=== PATIENT | female | born 1960 | race Caucasian/White ===

== ENCOUNTER 2016-07-28 19:21 | Emergency (ER) | payer OTHER ==
[~2016-07-28] VITALS: Ht 160 cm; Wt 88.5 kg
[2016-07-28 20:27] VITALS: Ht 160 cm; Wt 88.5 kg
[2016-07-28] MEDS ORDERED: morphine 4 MG/ML VIAL IV STA (21:07)
[2016-07-28] MEDS ORDERED: SOD CHLORIDE 0.9% 1,000 ML IV STA (21:07)
[2016-07-28] MEDS ORDERED: ONDANSETRON 4 MG INJ IV STA (21:07)
[2016-07-28] MEDS ORDERED: SOD CHLORIDE 0.9% 100 ML ONE (21:35)
[2016-07-28] MEDS ORDERED: IOHEXOL 300MG/ML 150 ML BTL ONE (21:35)
[2016-07-28 21:38] LABS: ADD SCAN DIFF NO
[2016-07-28 21:41] LABS: BASOPHIL # 0.1 10^3/ul (0.0-0.1); BASOPHILS % 0.6 % (0.0-2.0); HEMATOCRIT 40.5 % (37.0-47.0); HEMOGLOBIN 13.7 g/dl (12.0-16.0); LYMPHOCYTES # 1.9 10^3/ul (0.8-2.9); LYMPHOCYTES % 18.7 % (15.0-51.0); MEAN CORPUSCULAR HEMOGLOBIN 31.7 pg (29.0-33.0); MEAN CORPUSCULAR HGB CONC 33.8 g/dl (32.0-37.0); MEAN CORPUSCULAR VOLUME 93.8 fl (82.0-101.0); MEAN PLATELET VOLUME 10.2 fl (7.4-10.4); MONOCYTE # 0.7 10^3/ul (0.3-0.9); MONOCYTES % 6.9 % (0.0-11.0); NEUTROPHIL # 7.3 10^3/ul (1.6-7.5); NEUTROPHILS % 73.3 % (39.0-77.0); PLATELET COUNT 261 10^3/UL (140-415); RED BLOOD COUNT 4.32 10^6/ul (4.20-5.40); RED CELL DISTRIBUTION WIDTH 13.1 % (11.5-14.5)
[2016-07-28 21:50] LABS: INR 1.11; PROTIME 14.3 Sec (12.2-14.2); PT RATIO 1.1
[2016-07-28 21:51] LABS: ALBUMIN 4.6 g/dl (3.3-4.9); CHLORIDE 98 mmol/L (97-110); PARTIAL THROMBOPLASTIN TIME 32.4 Sec (25.0-35.0)
[2016-07-28 21:52] LABS: POTASSIUM 3.7 mmol/L (3.5-5.1); SODIUM 135 mmol/L (135-144)
[2016-07-28 21:54] LABS: AMYLASE 102 U/L (11-123); ANION GAP 17 (8-16); BILIRUBIN,INDIRECT 0.6 mg/dl (0-1.1); BILIRUBIN,TOTAL 0.6 mg/dl (0.2-1.3); CARBON DIOXIDE 24 mmol/L (21-31)
[2016-07-28 21:55] LABS: ALANINE AMINOTRANSFERASE 66 IU/L (13-69); ALBUMIN/GLOBULIN RATIO 1.24; ALKALINE PHOSPHATASE 90 IU/L (42-121); ASPARTATE AMINO TRANSFERASE 27 IU/L (15-46); BLOOD UREA NITROGEN 14 mg/dl (7-20); CALCIUM 9.2 mg/dl (8.4-10.2); GLUCOSE 113 mg/dl (70-220); TOTAL PROTEIN 8.3 g/dl (6.1-8.1)
[2016-07-28 22:18] LABS: ADD UMIC YES; URINE BILIRUBIN (Dip) NEGATIVE (NEGATIVE); URINE BLOOD (Dip) 1+ (NEGATIVE); URINE COLOR LT. YELLOW (YELLOW); URINE GLUCOSE (Dip) NEGATIVE (NEGATIVE); URINE KETONES (Dip) NEGATIVE (NEGATIVE); URINE LEUKOCYTE ESTERASE (Dip) NEGATIVE (NEGATIVE); URINE NITRITE (Dip) NEGATIVE (NEGATIVE); URINE TOTAL PROTEIN (Dip) NEGATIVE (NEGATIVE); URINE UROBILINOGEN (Dip) 0.2 E.U./dL (0.1-1.0)
[2016-07-28 22:31] LABS: TROPONIN-I < 0.012 ng/ml (0.00-0.12)
[2016-07-28 22:35] LABS: MUCUS,URINE FEW; SQUAMOUS EPITHELIAL CELL,UR OCCASIONAL; URINE RBCS 0-2 /HPF (0)
[2016-07-28] MEDS ORDERED: IBUP800T25 PO (23:23)
[2016-07-28] MEDS ORDERED: HYDR-906 PO (23:23)
[2016-07-28] MEDS ORDERED: IBUPROFEN 800 MG TAB PO ONE (23:30)
[2016-07-28] MEDS ORDERED: ACETAMINOPHEN 500 MG TAB PO STA (23:30)
--- NOTE | 2016-07-28 23:30 | ERD ---
ER Documentation Chief Complaint Date/Time DATE: 07/28/16 TIME: 23:25 Chief Complaint LEFT FLANK PAIN X 2 DAYS +FEVER DENIES N/V DIARRHEA. HPI This is a very pleasant 55-year-old female that presents to the emergency department complaining of left flank pain that has been intermittent for the past 2 years. Contrary to the triage note the patient indicates that the pain has been intermittent for the past 2 years but progressively worsened over the past 48 hours. She does indicate she has had a tactile fever with shaking chills. Patient does indicate she has been experiencing mild dysuria but denies any frequency urgency and she has no nausea vomiting or diarrhea. She denies any recent remote trauma to the abdomen or flank region. She has no gross hematuria. She denies any abnormal urethral discharge. She has taken Tylenol but this does not improve her pain. She denies any shortness of breath at rest or exertion. She denies any weight loss. She denies a productive or nonproductive cough. Patient denies any saddle anesthesia. She states that the left flank pain does not radiate to her lower abdomen or legs. She denies any changes in her bladder or bowel frequency. ROS All systems reviewed and are negative except as per history of present illness. Medications Home Meds Active Scripts Hydrocodone/Acetaminophen ([place] 5-325 Tablet) 1 Each Tablet, 1 EACH PO Q6, #20 TAB Prov:CESAR BARCENAS 07/28/16 Ibuprofen* (Motrin*) 800 Mg Tab, 800 MG PO Q6H Y for PAIN AND OR ELEVATED TEMP, #30 TAB Prov:CESAR BARCENAS 07/28/16 Allergies Allergies: Uncoded Allergies: PENICILLIN (Allergy, Severe, RASH, 07/28/16) Physical Exam Vitals Vital Signs Date Time Temp Pulse Resp B/P Pulse Ox O2 Delivery O2 Flow Rate FiO2 07/28/16 20:27 102.2 99 20 129/68 99 Physical Exam Constitutional:Well-developed. Well-nourished. HEENT:Normocephalic. Atraumatic.Pupils were equal round reactive to light. Moist mucous membranes.No tonsillar exudates. Neck: No nuchal rigidity. No lymphadenopathy. No posterior cervical spine tenderness or step-offs. Respiratory: Not using accessory muscles of respiration.Lungs were clear to auscultation bilaterally. No rhonchi. No rales. No wheezing. Cardiovascular: Regular rate regular rhythm.No murmurs. No rubs were appreciated.S1, S2 normal. Distal pulses are palpable 2+ bilaterally. GI: Abdomen was soft. Left CVA tenderness. Non Distended. No pulsatile abdominal masses or bruits. No rebound. No guarding. Bowel sounds were present and normal. Muscle skeletal: Full range of motion of both the upper and lower extremities bilaterally.Normal muscle tone.No assymetrical calf tenderness or swelling. Straight leg test negative on the left and the right Skin: No petechia, no purpura. No lesions on the palms or the soles of the feet. No maculopapular rash. NEURO: Patient was alert, awake, orientated x3.No facial droop. Gait observed and normal with no ataxia.Speech had regular rate and rhythm. No focal neurological deficits. Result Diagram: 07/28/16212207/28/162122 Results 24 hrs Laboratory Tests Test 07/28/16 21:23 07/28/16 21:32 White Blood Count 10.010^3/ul Red Blood Count 4.3210^6/ul Hemoglobin 13.7g/dl Hematocrit 40.5% Mean Corpuscular Volume 93.8fl Mean Corpuscular Hemoglobin 31.7pg Mean Corpuscular Hemoglobin Concent 33.8g/dl Red Cell Distribution Width 13.1% Platelet Count 88011^3/UL Mean Platelet Volume 10.2fl Neutrophils % 73.3% Lymphocytes % 18.7% Monocytes % 6.9% Eosinophils % 0.0% Basophils % 0.6% Nucleated Red Blood Cells % 0.0/100WBC Neutrophils # 7.310^3/ul Lymphocytes # 1.910^3/ul Monocytes # 0.710^3/ul Eosinophils # 0.010^3/ul Basophils # 0.110^3/ul Nucleated Red Blood Cells # 0.010^3/ul Prothrombin Time 14.3Sec Prothrombin Time Ratio 1.1 INR International Normalized Ratio 1.11 Activated Partial Thromboplast Time 32.4Sec Sodium Level 135mmol/L Potassium Level 3.7mmol/L Chloride Level 98mmol/L Carbon Dioxide Level 24mmol/L Anion Gap 17 Blood Urea Nitrogen 14mg/dl Creatinine 0.80mg/dl Glucose Level 113mg/dl Calcium Level 9.2mg/dl Total Bilirubin 0.6mg/dl Direct Bilirubin 0.00mg/dl Indirect Bilirubin 0.6mg/dl Aspartate Amino Transf (AST/SGOT) 27IU/L Alanine Aminotransferase (ALT/SGPT) 66IU/L Alkaline Phosphatase 90IU/L Troponin I < 0.012ng/ml Total Protein 8.3g/dl Albumin 4.6g/dl Globulin 3.70g/dl Albumin/Globulin Ratio 1.24 Amylase Level 102U/L Lipase 98U/L Urine Color LT. YELLOW Urine Clarity CLEAR Urine pH 5.5 Urine Specific [place] 1.015 Urine Ketones NEGATIVE Urine Nitrite NEGATIVE Urine Bilirubin NEGATIVE Urine Urobilinogen 0.2 E.U./dL Urine Leukocyte Esterase NEGATIVE Urine Microscopic RBC 0-2/HPF Urine Microscopic WBC 0-2/HPF Urine Squamous Epithelial Cells OCCASIONAL Urine Mucus FEW Urine Hemoglobin 1+ Urine Glucose NEGATIVE% Urine Total Protein NEGATIVE Current Medications Medications (Trade) Dose Ordered Sig/Marcellus Route PRN Reason Start Time Stop Time Status Last Admin Dose Admin Sodium Chloride (NS) 1,000 ml @ 1,000 mls/hr Q1H STAT IV 07/28/16 21:07 07/28/16 22:06 DC 07/28/16 21:28 Morphine Sulfate (morphine) 4 mg ONCE STAT IV 07/28/16 21:07 07/28/16 21:08 DC 07/28/16 21:28 Ondansetron HCl (Zofran Inj) 4 mg ONCE STAT IV 07/28/16 21:07 07/28/16 21:08 DC 07/28/16 21:28 Procedures/MDM The patient presented to the emergency department with left flank pain. My differential diagnosis included but was not limited to spinal origins of the pain such as fracture, osteomyelitis, epidural abscess, neoplasm, spondylolishtesis, discogenic, cauda equina syndrome or musculoligamentous. Nonspinal causes such as AAA, upper UTI, renal colic, aortic dissection, abdominal neoplasm were also considered as an etiology into their pain. The patient had no leukocytosis. There is no electrolyte abnormalities. There is no evidence of urinary tract infection. The patient did receive intravenous morphine Toradol and Zofran for analgesic control. 12 Lead EKG tracing ordered and reviewed by myself showed: Normal sinus rhythm of 86 bpm and no arrhythmia. [place] interval normal. QRS duration normal. No ST segment elevation No ST segment depression. No changes consistent with acute ischemia. The patient was febrile in the emergency department with a fever of 102. She received antipyretics which included acetaminophen and Motrin. Again the patient had no leukocytosis and no evidence of cystitis on the urinalysis. I did indicate to the patient that this could be a viral etiology and the patient had no physical exam findings to suggest sepsis I obtained a CT scan of the abdomen which showed no evidence of obstructive uropathy, diverticulitis or perforated viscus. I did indicate that the patient would benefit from an outpatient colonoscopy and further evaluation as he did not have an exact etiology into the patient's flank pain at this time did not appear to have an acute emergent condition; however I cannot rule out a neoplasm. The patient was discharged home in fair condition. They were instructed to return to the emergency department at any time if there was any worsening of their condition. The patient stated they would follow up with their PCP in the next 24-48 hours to initiate a suitable medication regimen under the care of their PCP as well as to allow their PCP to monitor any drug reactions. The patient was discharged home with prescriptions after they gave informed consent to the new medication. They were also fully informed by myself on the adverse effects and adverse drug interactions in order to provide adequate safeguards to prevent possible adverse reactions to medications. Departure Diagnosis: Primary Impression: Flank pain Condition: Fair Patient Instructions: Flank Pain, Uncertain Cause Referrals: [facility] NITHYA Roberts (PCP) CESAR BACRENAS Jul 28, 2016 23:30
[2016-07-29] VITALS: BP 98/72; PULSE 64; RESP 17; TEMP 98.7
--- NOTE | 2016-07-29 00:06 | RADRPT ---
PROCEDURE: CT abdomen and pelvis with intravenous contrast. CLINICAL INDICATION: Pain. TECHNIQUE: CT of the abdomen/pelvis was performed utilizing axial images with reconstructions in s agittal and coronal planes after uneventful administration of 100 cc Omnipaque 300. The administered radiation dose is CTDI 21 mGy, DLP 1179 mGy-cm. COMPARISON: No pertinent prior examinations were submitted for comparison. FINDINGS: Visualized Chest: Some coronary artery calcifications are noted. Abdomen: The spleen, pancreas, gallbladder,and adrenal glands are unremarkable. The liver is diffusely dec reased in attenuation, compatible with hepatic steatosis. The kidneys are without hydronephrosis. No definite urinary calculi are seen. Some areas of scarrin g are noted within the right renal cortex. There is no evidence of bowel obstruction. The appendix is normal. No intra-abdominal free air is seen. There is no evidence of intra-abdominal adenopathy or free fluid. Pelvis: There is no evidence of pelvic adenopathy. The uterus and ovaries are without enlargement. The uri nary bladder is unremarkable. There is trace pelvic free fluid. Osseous structures: Unremarkable. IMPRESSION: No acute findings. Hepatic steatosis. RPTAT: HIKT .Saurabh Lemos MD, MD Date Time Electronically viewed and signed by .Saurabh Lemos MD, on 07/29/2016 00:06 .T/
== END 2016-07-29 00:59 | disposition home or self-care (01) ==
LOC: E/R 19:21
DX: R10.9 Unspecified abdominal pain (principal)
CPT/HCPCS: 74177; 80053; 81001; 82150; 83690; 84484; 85025; 85610; 85730; 87086; 93005; J2270; J2405; J7030; Q9967; Z7610; 81003; 96374; 96375

== ENCOUNTER 2017-01-21 07:08 | Emergency (ER) | payer OTHER ==
[~2017-01-21] VITALS: Wt 89.0 kg
[~2017-01-21 07:08] MED LIST: HYDR-906 PO; IBUP800T25 PO
[2017-01-21 07:21] VITALS: Wt 89.0 kg
[2017-01-21] MEDS ORDERED: TRAM50TA2 PO (07:59)
--- NOTE | 2017-01-21 09:17 | ERD ---
ER Documentation Chief Complaint Date/Time DATE: 01/21/17 TIME: 09:13 Chief Complaint reta knee pain, no trauma HPI This is a 56-year-old female presenting to the emergency department complaining of bilateral knee pain for the past year. Patient states that there is no trauma, she rates the pain moderate in severity increased with movement. Patient states that the pain has increased since yesterday. She denies any fevers. She take Tylenol for pain ROS All systems reviewed and are negative except as per history of present illness. Medications Home Meds Active Scripts Tramadol HCl (Tramadol HCl) 50 Mg Tablet, 50 MG PO Q6 Y for PAIN, #20 TAB Prov:SAVANNA JONES PA-C 01/21/17 Hydrocodone/Acetaminophen ([place] 5-325 Tablet) 1 Each Tablet, 1 EACH PO Q6, #20 TAB Prov:CESAR BARCENAS 07/28/16 Ibuprofen* (Motrin*) 800 Mg Tab, 800 MG PO Q6H Y for PAIN AND OR ELEVATED TEMP, #30 TAB Prov:CESAR BARCENAS 07/28/16 Allergies Allergies: Uncoded Allergies: PENICILLIN (Allergy, Severe, RASH, 07/28/16) PMhx/Soc History of Surgery: Yes (TUMMY TUCK) Anesthesia Reaction: No Hx Neurological Disorder: No Hx Respiratory Disorders: No Hx Cardiac Disorders: No Hx Psychiatric Problems: No Hx Miscellaneous Medical Probl: No Hx Alcohol Use: No Hx Substance Use: No Hx Tobacco Use: No Smoking Status: Never smoker Physical Exam Vitals Vital Signs Date Time Temp Pulse Resp B/P Pulse Ox O2 Delivery O2 Flow Rate FiO2 01/21/17 07:21 97.7 64 20 150/68 98 Physical Exam General: WD/WN, in no apparent distress, non-toxic appearing HENT: NC/AT Eyes: Conjunctiva normal Neck: Supple Pulm: Clear to auscultation, normal labored breathing; no wheezing/rales/ rhonchi heard CV: Good capillary refill GI: Non-distended, no guarding Back: No masses Ext: Palpation bilateral peripatellar region, full range of motion Neuro: Moves on all fours Skin: intact Psych: Normal mood Procedures/MDM This is a 56-year-old female presenting to the emergency department complaining of bilateral knee pain for the past year. On examination there was no evidence of any fracture or dislocation. No evidence of septic arthritis, DVT. Patient is stable to be discharged home to follow-up with an orthopedist. Patient was given prescription for tramadol for pain. She is neurovascularly intact to be discharged home. Departure Diagnosis: Primary Impression: Knee pain, bilateral Condition: Stable Patient Instructions: Osteoarthritis: Common Sites, Knee Pain, Uncertain Cause Additional Instructions: Visite a hatch fang dick para un EXAMEN.Regrese a estas instalaciones si no se mejora adela esperbamos o adela le dijimos. [place] toda la medicina shanel y adela se le indic. Regrese a estas instalaciones si no se mejora adela esperbamos o adela le dijimos. SAVANNA JONES PA-C Jan 21, 2017 09:17
== END 2017-01-21 08:11 | disposition home or self-care (01) ==
LOC: FTE 07:08
DX: M25.562 Pain in left knee (principal); M25.561 Pain in right knee
CPT/HCPCS: 99283